=== PATIENT | female | born 1985 | race Caucasian/White ===

== ENCOUNTER 2019-08-18 16:37 | Emergency (ER) | payer BC, OTHER ==
[2019-08-18 16:44] VITALS: BP 131/88; PULSE 118; TEMP 99.9; BMI 32.5
--- NOTE | 2019-08-18 16:44 | PDOC ---
Rapid Medical Evaluation Time Seen by Provider: 08/18/19 16:42 Medical Evaluation: Allergies Allergy/AdvReac Type Severity Reaction Status Date / Time No Known Allergies Allergy Verified 01/09/13 13:29 08/18/19 16:42 This patient had a brief in-person evaluation in triage cc: flu-like symptoms HPI: Patient reports coughing, headache, chest discomfort since Sunday. Also reports chills PE: erythematous pharynx unlabored breathing warm to touch Orders:urine This patient will proceed to main ed for further evaluation Discharge Disposition - Diagnosis Flu-like symptoms - Referrals - Patient Instructions - Post Discharge Activity
--- NOTE | 2019-08-18 17:52 | PDOC ---
History of Present Illness - General Chief Complaint: Cold Symptoms Stated Complaint: HIGH FEVER Time Seen by Provider: 08/18/19 16:42 - History of Present Illness Initial Comments: 08/18/19 17:49 33-year-old female without comorbidities presents for evaluation of flulike symptoms x4 days. Past History - Past Medical History Allergies/Adverse Reactions: Allergies Allergy/AdvReac Type Severity Reaction Status Date / Time No Known Allergies Allergy Verified 08/18/19 16:44 Home Medications: Ambulatory Orders No Home Medications 0 dose .ROUTE UTDICT 01/09/13 Guaifenesin Dm [Mucinex Dm -] 1 tab PO BID #60 tab.er.[id number] 08/18/19 COPD: No - Immunization History Immunization Up to Date: Yes - Psycho Social/Smoking Cessation Hx Smoking Status: No Smoking History: Never smoked Have you smoked in the past 12 months: No Number of Cigarettes Smoked Daily: 0 Information on smoking cessation initiated: No Hx Alcohol Use: No Drug/Substance Use Hx: No Review of Systems - Review of Systems Constitutional: Yes: Chills, Fever, Malaise, Night Sweats HEENTM: Yes: Nose Congestion Respiratory: Yes: Cough *Physical Exam - Vital Signs Last Vital Signs Temp Pulse Resp BP Pulse Ox 99.9 F H 118 H 17 131/88 100 08/18/19 16:40 08/18/19 16:40 08/18/19 16:40 08/18/19 16:40 08/18/19 16:40 - Physical Exam 08/18/19 17:50 GENERAL: The patient is awake, alert, and fully oriented, in no acute distress. HEAD: Normal with no signs of trauma. EYES: sclera anicteric, conjunctiva clear. ENT: Ears normal tympanic membranes normal oropharynx clear uvula midline NECK: Normal range of motion LUNGS: Breath sounds equal, clear to auscultation bilaterally. No wheezes, and no crackles. HEART: S1 and S2 without murmur, rub or gallop. ABDOMEN: Soft, nontender, normoactive bowel sounds. No guarding, no rebound. No masses. EXTREMITIES: Normal range of motion, no edema. No clubbing or cyanosis. No cords, erythema, or tenderness. NEUROLOGICAL: Cranial nerves II through XII grossly intact. PSYCH: Normal mood, normal affect. SKIN: Warm, Dry, normal turgor, no rashes or lesions noted. Medical Decision Making - Medical Decision Making 08/18/19 17:50 Out of the window for Tamiflu. Supportive care for viral upper respiratory infection Tylenol Motrin Mucinex Discharge - Discharge Information Problems reviewed: Yes Clinical Impression/Diagnosis: Flu-like symptoms Condition: Stable Disposition: HOME - Admission No - Follow up/Referral Referrals: Radha Steen MD [Staff Physician] - - Patient Discharge Instructions Additional Instructions: Tylenol and Motrin for body aches and fevers as directed. Mucinex DM for cough as directed. Return to the emergency room for worsening symptoms and without fail follow-up with your primary care physician in 1 to 2 days for further evaluation and treatment options. - Post Discharge Activity Work/Back to School Note: Back to Work
[2019-08-18] MEDS ORDERED: ACETAMINOPHEN 500 MG TABLET (FP) PO ONE (17:54)
[2019-08-18] MEDS ORDERED: ACETAMINOPHEN 500 MG TABLET (FP) ONE (17:57)
== END 2019-08-18 17:59 | disposition home or self-care (01) ==
LOC: JERFT 16:37
DX: J11.1 Influenza due to unidentified influenza virus with other respiratory manifestations (principal)
CPT/HCPCS: 99282-25